=== PATIENT | female | born 1995 | race Caucasian/White ===

== ENCOUNTER 2016-11-24 14:24 | Emergency (ER) | payer BC ==
[2016-11-24 14:34] VITALS: BP 123/73
--- NOTE | 2016-11-24 15:01 | UC ---
Complaint Female HPI - HPI Summary HPI Summary: 21 y/o female presents to the urgent care c/o pelvic pain w/ irregular menstrual cycles. Pt reports her menses has been every 2 weeks w/ increase clotting since 10/29/2016. Pt reports she is taking Previfem as her OCP for the past 2 years. Her periods usually last 5 days. Today her menstrual period began today w/ cramping pelvic pain, 10/09 . Her last PAP last year was negative. Pt denies fever, Hx of STD's, SOB, chest pain, N/V/D. Pt has not other complains. - History Of Current Complaint Chief Complaint: UCGeneralIllness Stated Complaint: PERSONAL Time Seen by Provider: 11/24/16 14:42 Hx Obtained From: Patient Hx Last Menstrual Period: 11/11/16 ?: No Onset/Duration: Gradual Onset, Lasting Days, Still Present Timing: Intermittent, Lasting Days Severity Initially: Mild Severity Currently: Moderate Pain Intensity: 6 Pain Scale Used: 0-10 Numeric Character: Cramping Aggravating Factor(s): Nothing Alleviating Factor(s): Nothing Associated Signs And Symptoms: Positive: Vaginal Bleeding/Discharge - clots. Negative: Fever, Back Pain, Nausea, Vomiting(# Of Episodes =), Genital Swelling , Genital Blisters Related Hx: - 0, Para - 0 - Risk Factors Ectopic Risk Factor: Negative Ovarian Torsion Risk Factor: Negative - Allergies/Home Medications Allergies/Adverse Reactions: Allergies Allergy/AdvReac Type Severity Reaction Status Date / Time No Known Allergies Allergy Verified 09/05/14 20:46 PMH/Surg Hx/FS Hx/Imm Hx Previously Healthy: Yes - Surgical History Surgical History: Yes Surgery Procedure, Year, and Place: ORAL SURGERY,right foot surgery - Family History Known Family History: Positive: Diabetes Family History: Dyslipidemia - Social History Occupation: Employed Full-time Lives: With Family Alcohol Use: Occasionally Substance Use Type: None Smoking Status (MU): Never Smoked Tobacco Review of Systems Constitutional: Negative Skin: Negative Eyes: Negative ENT: Negative Respiratory: Negative Cardiovascular: Negative Gastrointestinal: Negative Genitourinary: Other - pelvic pain w/ irrgular menstrual cycle Motor: Negative Neurovascular: Negative Musculoskeletal: Negative Neurological: Negative Psychological: Negative All Other Systems Reviewed And Are Negative: Yes Physical Exam Triage Information Reviewed: Yes Appearance: Well-Appearing, No Pain Distress, Well-Nourished Vital Signs: Initial Vital Signs Temp 98.2 F 11/24/16 14:29 Pulse 86 11/24/16 14:29 BP 123/73 11/24/16 14:29 Pulse Ox 100 11/24/16 14:29 Vital Signs Reviewed: Yes Eye Exam: Normal Eyes: Positive: Conjunctiva Clear - PERRLS, EOMI, fundi grossly normal ENT Exam: Normal ENT: Positive: Normal ENT inspection, Hearing grossly normal, Pharynx normal, TMs normal Dental Exam: Normal Neck exam: Normal Neck: Positive: Supple, Nontender, No Lymphadenopathy Respiratory Exam: Normal Respiratory: Positive: Chest non-tender, Lungs clear, Normal breath sounds Cardiovascular Exam: Normal Cardiovascular: Positive: RRR, No Murmur, Pulses Normal, Brisk Capillary Refill Abdominal Exam: Normal Abdomen Description: Positive: No Organomegaly, Soft - mild tenderness over the suprapubic area. Bowel Sounds: Positive: Present Musculoskeletal Exam: Normal Musculoskeletal: Positive: Strength Intact, ROM Intact, No Edema Neurological Exam: Normal Psychological Exam: Normal Skin Exam: Normal Complaint Female Dx - Course Course Of Treatment: 21 y/o female presents to the urgent care c/o pelvic pain w/ irregular menstrual cycles. Pt reports her menses has been every 2 weeks w/ increase clotting since 10/29/2016. Pt reports she is taking Previfem as her OCP for the past 2 years. Her periods usually last 5 days. Today her menstrual period began today w/ cramping pelvic pain, 10/09 . Her last PAP last year was negative. Pt denies fever, Hx of STD's, SOB, chest pain, N/V/D, urinary symptoms. HX obtained. PE abnormal findings: mild tenderness over the suprapubic area. Pt declined pelvic examination due to her menstraul cycle today. UA ordered, result:+ blood, test: negative. Dx metrorrhagia. 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 Advised if dizziness, SOB, palpitaions develops to immediately go to the ER. Pt understood and agreed. - Differential Dx/Diagnosis Differential Diagnosis/HQI/PQRI: Ovarian Cyst, , Urinary Tract Infection, Other - metrorrhagia, Provider Diagnoses: 1- Metrorrhagia, pelvic pain Discharge - Discharge Plan Condition: Stable Disposition: HOME Prescriptions: Ibuprofen TAB* [Motrin TAB* 800 MG] 800 mg PO Q6H #30 tab Patient Education Materials: Dysfunctional Uterine Bleeding (ED) Referrals: Tashi SANCHEZ,Devika Woodson [Primary Care Provider] - 1 Week Sis Neumann MD [Medical Doctor] - As Soon As Possible Additional Instructions: Please take medication as instructed to alleviate Pelvic pain. Please f/u with your PCP or S[employer]IOR [employer] SAL[employer] CONSULTANT for further management. If Pelvic pain increases despite medication and you develop profuse vaginal bleeding with dizziness, SOB, palpitations go immediately to the ER.
== END 2016-11-24 15:23 | disposition home or self-care (01) ==
LOC: UCEAST 14:24
DX: N92.1 Excessive and frequent menstruation with irregular cycle (principal); R10.2 Pelvic and perineal pain; Z32.02 Encounter for pregnancy test, result negative
CPT/HCPCS: 81003; 84702; 99212; G0463

== ENCOUNTER 2017-01-29 18:14 | Emergency (ER) | payer BC ==
[2017-01-29 18:28] VITALS: BP 109/59
[2017-01-29] MEDS ORDERED: HYDROcodone/ACETAMIN 5-325 MG* 1 TAB PO ONE (18:28)
--- NOTE | 2017-01-29 18:57 | UC ---
Lower Extremity/Ankle HPI - HPI Summary HPI Summary: left foot and ankle pain -stood up and ankle twisted--about 30 minutes prior to arrival - History of Current Complaint Chief Complaint: UCLowerExtremity Stated Complaint: LEFT ANKLE INJURY Time Seen by Provider: 01/29/17 18:17 Hx Obtained From: Patient Hx Last Menstrual Period: 12/29/16 ?: No Onset/Duration: Sudden Onset, Still Present Severity Initially: Moderate Severity Currently: Moderate Pain Intensity: 7 Pain Scale Used: 0-10 Numeric Aggravating Factor(s): Standing Alleviating Factor(s): Nothing Able to Bear Weight: No - Allergies/Home Medications Allergies/Adverse Reactions: Allergies Allergy/AdvReac Type Severity Reaction Status Date / Time No Known Allergies Allergy Verified 01/29/17 18:19 Home Medications: Home Medications Etonogestrel [Nexplanon] 68 mg IMPLANT 01/29/17 [History] HYDROcodone/ACETAMIN 5-325 MG* [[place] 5-325 TAB*] 1 tab Q6HR PRN 01/29/17 [ History Confirmed 01/29/17] Sertraline HCl [Zoloft] 100 mg BID 01/29/17 [History Confirmed 01/29/17] PMH/Surg Hx/FS Hx/Imm Hx Previously Healthy: No Psychological History: Depression - Surgical History Surgical History: Yes Surgery Procedure, Year, and Place: ORAL SURGERY,right foot surgeryx3 (Still casted) - Family History Known Family History: Positive: Diabetes Family History: Dyslipidemia - Social History Occupation: Student Lives: With Family Alcohol Use: Occasionally Substance Use Type: Marijuana Substance Use Comment - Amount & Last Used: 01/28/17 Smoking Status (MU): Never Smoked Tobacco - Immunization History Most Recent Influenza Vaccination: NOT YET 2017 Review of Systems Constitutional: Negative Skin: Negative Eyes: Negative ENT: Negative Respiratory: Negative Cardiovascular: Negative Gastrointestinal: Negative Genitourinary: Negative Motor: Negative Neurovascular: Negative Musculoskeletal: Arthralgia - fibula, lateral & Medial ankle, bottom of foot Neurological: Negative Psychological: Negative Is Patient Immunocompromised?: No All Other Systems Reviewed And Are Negative: Yes Physical Exam Triage Information Reviewed: Yes Appearance: Well-Appearing, No Pain Distress, Well-Nourished Vital Signs: Initial Vital Signs Temp 98.1 F 01/29/17 18:20 Pulse 76 01/29/17 18:20 Resp 16 01/29/17 18:20 BP 109/59 01/29/17 18:20 Pulse Ox 100 01/29/17 18:20 Vital Signs Reviewed: Yes Eye Exam: Normal Eyes: Positive: Conjunctiva Clear ENT Exam: Normal ENT: Positive: Normal ENT inspection, Hearing grossly normal, TMs normal. Negative: Nasal congestion, Nasal drainage, Trismus, Muffled/hoarse voice Dental Exam: Normal Neck exam: Normal Neck: Positive: Supple, Nontender, No Lymphadenopathy Respiratory Exam: Normal Respiratory: Positive: Chest non-tender, Lungs clear, No accessory muscle use Cardiovascular Exam: Normal Cardiovascular: Positive: RRR, Brisk Capillary Refill Musculoskeletal Exam: Normal Musculoskeletal: Positive: No Edema, Strength Limited @ - left ankle, ROM Limited @ - left ankle Neurological Exam: Normal Neurological: Positive: Alert, Muscle Tone Normal Psychological Exam: Normal Skin Exam: Normal Diagnostics - Radiology No standard instances Xray Interpretation: No Acute Changes Radiology Interpretation Completed By: ED Physician, Radiologist Lower Extremity Course/Dx - Course Course Of Treatment: gel splint, post op shoe, rice,pain control follow with ortho - Differential Dx/Diagnosis Differential Diagnosis/HQI/PQRI: Cellulitis, Contusion, Foreign Body, Gout, Sprain, Strain Provider Diagnoses: left ankle sprain Discharge - Discharge Plan Condition: Stable Disposition: AGAINST MEDICAL ADVICE Patient Education Materials: RICE Therapy (ED), Ankle Sprain (ED), Ankle Stirrup Splint (ED) Referrals: Devika Richter [Primary Care Provider] - 4 Days
--- NOTE | 2017-01-29 18:58 | RAD ---
INDICATION: Left ankle pain COMPARISON: Left ankle May 12, 2010 TECHNIQUE: AP, lateral, and oblique views were obtained. FINDINGS: There is mild lateral soft tissue swelling. There is no acute fracture. The ankle mortise is intact. IMPRESSION: MILD LATERAL SOFT TISSUE SWELLING.
--- NOTE | 2017-01-29 18:58 | RAD ---
INDICATION: Left foot pain COMPARISON: None TECHNIQUE: AP, lateral, and oblique views were obtained. FINDINGS: The bony structures, joint spaces, and soft tissues are normal for age. IMPRESSION: NEGATIVE EXAMINATION.
== END 2017-01-29 19:35 | disposition home or self-care (01) ==
LOC: UCCORT 18:14
DX: S93.402A Sprain of unspecified ligament of left ankle, initial encounter (principal); X50.1XXA Overexertion from prolonged static or awkward postures, initial encounter; Y93.9 Activity, unspecified; Y92.9 Unspecified place or not applicable; F32.9 Major depressive disorder, single episode, unspecified; F12.90 Cannabis use, unspecified, uncomplicated
CPT/HCPCS: 99213; G0463

== ENCOUNTER 2017-06-16 13:00 | Emergency (ER) | payer BC | END 2017-06-16 13:19 | disposition left against medical advice (07) | LOC: UCCORT 13:00 | DX: Z01.818 Encounter for other preprocedural examination (principal); Z53.21 Procedure and treatment not carried out due to patient leaving prior to being seen by health care provider ==